=== PATIENT | male | born 1970 | race American Indian/Alaskan Native ===

== ENCOUNTER 2017-11-12 22:50 | Emergency (ER) | payer BC, OTHER ==
[2017-11-12 22:56] VITALS: BP 119/64
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
== END 2017-11-13 04:05 | disposition home or self-care (01) ==
LOC: ED 22:50
DX: M54.5 Low back pain (principal); M54.2 Cervicalgia; V49.9XXA Car occupant (driver) (passenger) injured in unspecified traffic accident, initial encounter; Y93.89 Activity, other specified; Y99.8 Other external cause status; Y92.410 Unspecified street and highway as the place of occurrence of the external cause
CPT/HCPCS: 72040; 72100; 99283